=== PATIENT | female | born 2000 | race Two or more races ===

== ENCOUNTER 2018-04-08 18:08 | Emergency (ER) | payer MEDICAID, OTHER ==
[~2018-04-08] VITALS: Ht 144.8 cm; Wt 54.4 kg
[2018-04-08 19:00] VITALS: BP 102/41
[2018-04-08] MEDS ORDERED: ACETAMINOPHEN 325 MG TABLET ONE (19:27)
[2018-04-08] MEDS ORDERED: ONDANSETRON 4 MG TAB.RAPDIS ONE (19:28)
[2018-04-08] MEDS ORDERED: IBUPROFEN 400 MG TABLET ONE (19:28)
[2018-04-08] MEDS ORDERED: IBUPROFEN 400 MG TABLET PO ONE (19:30)
[2018-04-08] MEDS ORDERED: ACETAMINOPHEN 325 MG TABLET PO ONE (19:30)
[2018-04-08] MEDS ORDERED: ONDANSETRON 4 MG TAB.RAPDIS PO ONE (19:30)
== END 2018-04-08 20:26 | disposition home or self-care (01) ==
LOC: ER 18:10
DX: N94.6 Dysmenorrhea, unspecified (principal); R11.2 Nausea with vomiting, unspecified
CPT/HCPCS: 99284; A4606; Q0162; Z7610